=== PATIENT | female | born 1970 | race Caucasian/White ===

== ENCOUNTER 2016-11-10 08:07 | Day surgery (SDC) | payer OTHER ==
[~2016-11-10] VITALS: Ht 165.1 cm; Wt 58.9 kg
[2016-11-10] VITALS (9 sets, daily range): BP systolic 95–137; BP diastolic 42–96; PULSE 50–68; TEMP 97.8–99.2
[~2016-11-10 08:07] MED LIST: ASACOL HD800 MG PO; FLAGYL500 MG PO; HYOMAX-FT0.125 MG PO; LORTAB 5/500 501 TAB PO; NO HOME MEDICATIONS; OMEPRAZOLE DR20 MG PO; PREDNISONE10 MG; PREDNISONE20 MG PO; PRILOSEC 20MG20 MG PO; VICODIN 5/5001 UDTAB PO; ZOFRAN 4MG T4 MG/TAB PO
[2016-11-10] MEDS ORDERED: PREDNISONE20 MG PO (08:14)
[2016-11-10] MEDS ORDERED: BACTRIM DS 8001 TAB PO (08:14)
[2016-11-10 09:01] LABS: BASO # 0.1 (0.0-0.2); EOS # 0.1 (0.0-0.7); GRAN # 5.2 (1.4-6.5); GRAN % 62.5 % (42.2-75.2); HEMATOCRIT 38.5 % (37.0-47.0); HEMOGLOBIN 13.4 g/dl (12.5-16.0); LYMPH # 2.5 (1.2-3.4); LYMPH % 29.7 % (20.0-51.0); MEAN CELL VOLUME 95 fl (80.0-100.0); MEAN CORPUSCULAR HEMOGLOBIN 33 pg (27.0-31.0); MEAN CORPUSCULAR HGB CONC 35 g/dl (33.0-37.0); MEAN PLATELET VOLUME 10.9 fl (7.4-10.4); MONO # 0.5 (0.1-0.6); MONO % 5.4 % (1.7-9.3); PLATELET COUNT 154 K/mm3 (130-400); RED BLOOD COUNT 4.04 M/mm3 (4.10-5.30); REDCELL DISTRIBUTION WIDTH-CV 11.8 % (11.5-14.5); WHITE BLOOD COUNT 8.3 K/mm3 (4.8-10.8)
[2016-11-10 09:14] LABS: ADJUSTED CALCIUM 9.2 mg/dL (8.4-10.2); ALBUMIN 4.6 gm/dL (3.5-5.0); BILIRUBIN,TOTAL 1.3 mg/dL (0.0-1.0); CALCIUM 9.7 mg/dL (8.4-10.2); CREATININE, serum 0.99 mg/dL (0.52-1.25); POTASSIUM 4.6 mmol/L (3.4-5.0); TOTAL PROTEIN 7.6 gm/dL (6.4-8.2)
[2016-11-10 10:01] LABS: C-REACTIVE PROTEIN 1.4 mg/dL (0.0-0.9)
[2016-11-11 01:30] VITALS: BP 82/50; PULSE 57; TEMP 98.1
[2016-11-11 06:21] VITALS: BP 104/63; PULSE 64; TEMP 97.5
[2016-11-11] MEDS ORDERED: NORCO 325 MG-51 TAB PO (07:15)
[2016-11-11] MEDS ORDERED: BACTRIM DS 8001 TAB PO (07:16)
== END 2016-11-11 11:05 | disposition home or self-care (01) ==
LOC: COL.ER 08:07 → SURG 12:45 → SDCO 12:45 → SURG 12:50 → SDCO 11-11 11:05
PROVIDERS: Emergency Medicine
DX: L02.511 Cutaneous abscess of right hand (principal); K51.90 Ulcerative colitis, unspecified, without complications; Z87.891 Personal history of nicotine dependence
CPT/HCPCS: OP; J0690; J2270; J2704; J3010; J3370; J7050; J7120

== ENCOUNTER 2017-03-12 15:25 | Emergency (ER) | payer OTHER ==
[~2017-03-12] VITALS: Ht 165.1 cm; Wt 65.9 kg
[2017-03-12 15:25] VITALS: BP 143/83; PULSE 64; TEMP 98.5
[~2017-03-12 15:25] MED LIST changes: +BACTRIM DS 8001 TAB PO; +NORCO 325 MG-51 TAB PO
[2017-03-12 16:11] LABS: BASO # 0.1 (0.0-0.2); BASO % 0.6 % (0.0-2.0); EOS # 0.1 (0.0-0.7); EOS % 1.1 % (0-4.0); GRAN # 4.7 (1.4-6.5); GRAN % 56.2 % (42.2-75.2); HEMOGLOBIN 12.7 g/dl (12.5-16.0); LYMPH % 35.4 % (20.0-51.0); MEAN CELL VOLUME 93 fl (80.0-100.0); MEAN CORPUSCULAR HEMOGLOBIN 33 pg (27.0-31.0); MEAN CORPUSCULAR HGB CONC 35 g/dl (33.0-37.0); MEAN PLATELET VOLUME 10.7 fl (7.4-10.4); MONO # 0.5 (0.1-0.6); MONO % 6.1 % (1.7-9.3); PLATELET COUNT 164 K/mm3 (130-400); RED BLOOD COUNT 3.91 M/mm3 (4.10-5.30); WHITE BLOOD COUNT 8.3 K/mm3 (4.8-10.8)
[2017-03-12 16:12] LABS: HEMATOCRIT 36.2 % (37.0-47.0)
[2017-03-12 16:18] LABS: ADJUSTED CALCIUM 8.5 mg/dL (8.4-10.2); ALANINE AMINOTRANSFERASE 31 U/L (9-52); ALBUMIN 4.4 gm/dL (3.5-5.0); ALKALINE PHOSPHATASE 87 U/L (50-136); ANION GAP 10 mmol/L (7-16); BLOOD UREA NITROGEN 12 mg/dL (7-17); CALCIUM 8.8 mg/dL (8.4-10.2); CARBON DIOXIDE 26 mmol/L (22-30); CHLORIDE 103 mmol/L (98-107); CREATININE, serum 0.71 mg/dL (0.52-1.25); GLUCOSE 93 mg/dL (74-106); POTASSIUM 3.9 mmol/L (3.4-5.0); SODIUM 139 mmol/L (137-145); TOTAL PROTEIN 7.1 gm/dL (6.4-8.2)
[2017-03-12 16:19] LABS: C-REACTIVE PROTEIN < 0.5 mg/dL (0.0-0.9)
[2017-03-12] MEDS ORDERED: CLEOCIN HCL300 MG PO (16:27)
== END 2017-03-12 16:53 | disposition home or self-care (01) ==
LOC: COL.ER 15:25
PROVIDERS: Physician Assistant
DX: H92.02 Otalgia, left ear (principal); Z86.14 Personal history of Methicillin resistant Staphylococcus aureus infection

== ENCOUNTER → 2017-05-25 | Outpatient (CLI) | payer OTHER ==
[~2017-05-25] MED LIST changes: +CLEOCIN HCL300 MG PO
== END ==
LOC: MC.RAD 08:20
DX: Z12.31 Encounter for screening mammogram for malignant neoplasm of breast (principal)